=== PATIENT | male | born 1950 | race Caucasian/White ===

== ENCOUNTER 2023-08-21 07:59 | Day surgery (SDC) | payer OTHER ==
[2023-08-18 16:08] VITALS: BMI 24.7
[2023-08-21 11:11] VITALS: PULSE 74; TEMP 97
[2023-08-21 11:14] VITALS: BP 104/61; RESP 16
== END 2023-08-21 10:35 | disposition home or self-care (01) ==
LOC: FASU-ENDO 07:59
PROVIDERS: ATTEND Internal Medicine Gastroenterology
PROC: 0DBN8ZX Excision of Sigmoid Colon, Via Natural or Artificial Opening Endoscopic, Diagnostic (ICD-10-PCS; principal; 2023-08-21 09:45)
DX: Z12.11 Encounter for screening for malignant neoplasm of colon (principal); D12.5 Benign neoplasm of sigmoid colon
CPT/HCPCS: 88305-TC